=== PATIENT | male | born 1995 | race Caucasian/White ===

== ENCOUNTER 2017-06-17 13:54 | Emergency (ER) | payer OTHER ==
[2017-06-17 14:22] VITALS: BP 151/72; PULSE 105; RESP 16; TEMP 98.1; O2SAT 96
--- NOTE | 2017-06-17 14:54 | EDPHY ---
H & P Stated Complaint: cut right wrist with press box custodian this am HPI/ROS: HPI CHIEF COMPLAINT: Superficial laceration to the right wrist from work HISTORY OF PRESENT ILLNESS: Patient otherwise healthy 21-year-old male, no significant medical history does not take any medications he presents emergency room with superficial laceration to the right wrist. Patient states that this sustained this injury at work. He works at [employer]. 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 It is very superficial laceration. It is not deep. There is no arterial or tendon involvement. No muscle involvement. He is otherwise neurovascular intact. Patient reports tetanus shot up-to-date. Past Medical History: No significant medical history Past Surgical History: No significant surgical history Social History: Denies drugs alcohol tobacco. Works at [employer]. Family History: Noncontributory ROS REVIEW OF SYSTEMS: A comprehensive 10 point review of systems is otherwise negative aside from elements mentioned in the history of present illness. Exam Constitutional appears well nontoxic no acute distress triage nursing summary reviewed, vital signs reviewed, awake/alert. Eyes normal conjunctivae and sclera, EOMI, PERRLA. HENT normal inspection, atraumatic, moist mucus membranes, no epistaxis, neck supple/ no meningismus, no raccoon eyes. Respiratory clear to auscultation bilaterally, normal breath sounds, no respiratory distress, no wheezing. Cardiovascular rate normal, regular rhythm, no murmur, no edema, distal pulses normal. Gastrointestinal soft, non-tender, no rebound, no guarding, normal bowel sounds, no distension, no pulsatile mass. Genitourinary no CVA tenderness. Musculoskeletal no midline vertebral tenderness, full range of motion, no calf swelling, no tenderness of extremities, no meningismus, good pulses, neurovascularly intact. Skin superficial vertically oriented 5 cm laceration to the palmar side of the right wrist, no tendon involvement. No arterial vomit. Not deep. Does not require sutures. Neurologic awake, alert and oriented x 3, AAOx3, moves all 4 extremities equally, motor intact, sensory intact, CN II-XII intact, normal cerebellar, normal vision, normal speech. Psychiatric normal mood/affect. Heme/Lymph/Immune no lymphadenopathy. Differential Diagnosis: Includes but is not limited to in a particular order acute superficial laceration, deep abrasion, soft tissue injury need for wound care. Medical Decision Making: Plan for this patient clean his wound, make sure does not need to be repaired. An appropriate dressing. Laceration does not need to be repaired it is not deep. Wound is been closely cleaned and irrigated. Dressing in place. Source: Patient - Personal History Current Tetanus/Diphtheria Vaccine: No - Medical/Surgical History Hx Asthma: No Hx Chronic Respiratory Disease: No Hx Diabetes: No Hx Cardiac Disease: No Hx Renal Disease: No Hx Cirrhosis: No Hx Alcoholism: No Hx HIV/AIDS: No Hx Splenectomy or Spleen Trauma: No - Social History Smoking Status: Never smoked Constitutional: Initial Vital Signs Temperature (C) 36.7 C 06/17/17 14:19 Heart Rate 105 H 06/17/17 14:19 Respiratory Rate 16 06/17/17 14:19 Blood Pressure 151/72 H 06/17/17 14:19 O2 Sat (%) 96 06/17/17 14:19 O2 Delivery Mode Room Air Allergies/Adverse Reactions: No Known Allergies Allergy (Unverified 06/17/17 14:22) Home Medications: Medication Instructions Recorded NK [No Known Home Meds] 06/17/17 Departure - Departure Disposition: Home, Routine, Self-Care Clinical Impression: Arm laceration Condition: Good Instructions: Laceration (ED) Additional Instructions: 1. Watch her laceration for signs of infection this includes redness, drainage , fever, pus. 2. Keep her wound clean, dry and protected. 3. Return emergency room if there is any worsening symptoms questions or concerns. Referrals: MER RANGEL MD [Other] - As per Instructions
== END 2017-06-17 15:12 | disposition home or self-care (01) ==
LOC: CED 13:54
DX: S61.511A Laceration without foreign body of right wrist, initial encounter (principal); W26.0XXA Contact with knife, initial encounter; Y92.69 Other specified industrial and construction area as the place of occurrence of the external cause; Y99.0 Civilian activity done for income or pay; Y93.89 Activity, other specified